=== PATIENT | male | born 1970 | race Caucasian/White ===

== ENCOUNTER 2018-02-07 08:19 | Day surgery (SDC) | payer OTHER ==
[~2018-02-07] VITALS: Ht 170.2 cm; Wt 81.7 kg
[~2018-02-07 08:19] MED LIST: ASCORBIC ACID500 M3 PO; ATENOLOL50 MG PO; BETHANECHOL CHL25 MG PO; COLACE100 MG PO; DOK PLUS TABLE1 EACH PO; DULCOLAX10 MG PR; DURAGESIC25 MCG TD; ELAVIL150 MG PO; FLEXERIL5 MG PO; FLOMAX0.4 MG PO; FOLIC ACID1 MG PO; LOPRESSOR50 MG PO; MELATIN3 MG PO; NEURONTIN300 MG PO; NICODERM CQ1 EAC1 TD; OXYCODONE HCL10 MG PO; OXYCODONE HCL20 M1 PO; OXYMORPHONE HCL10 M1 PO; TAMSULOSIN HCL0.4 MG PO; THERAGRAN1 TABLET PO; TRAMADOL HCL50 MG PO; TYLENOL REGULA325 MG PO; [UNRECOGNIZED DRUG - REMARK] PO
[2018-02-07 09:10] LABS: BASOPHIL (%) 0.7 % (0-1); BASOPHIL COUNT 0.1 K/uL (0-0.1); EOSINOPHIL (%) 3.9 % (0-5); EOSINOPHIL COUNT 0.4 K/uL (0-0.3); HEMATOCRIT 45.6 % (38.0-50.0); HEMOGLOBIN 14.9 G/DL (12.5-16.6); IMMATURE GRANULOCYTE (%) 0.3 % (0.0-0.7); LYMPHOCYTE COUNT 2.6 K/uL (1.0-2.8); MCH 29.5 PG (29.0-34.0); MCHC 32.7 G/DL (30.0-36.0); MCV 90.3 FL (86-99); MONOCYTE (%) 6.4 % (3-12); MONOCYTE COUNT 0.6 K/uL (0-0.8); NEUTROPHIL (%) 62.7 % (45-76); NEUTROPHIL COUNT 6.2 K/uL (1.8-6.4); PLATELET COUNT 209 K/uL (156-360); RBC DIS.WIDTH-CV 14.2 % (11.8-14.6); RBC DIS.WIDTH-SD 47.3 % (39-53); RED BLOOD COUNT 5.05 M/uL (4.00-5.50); WHITE BLOOD COUNT 9.9 K/uL (4.1-10.2)
[2018-02-07 09:29] LABS: ALBUMIN 4.1 G/DL (3.2-4.8); CHLORIDE 104 MEQ/L (99-109); DIRECT BILIRUBIN 0.1 mg/dL (0.0-0.3); POTASSIUM 4.7 MEQ/L (3.7-5.4); SODIUM 138 MEQ/L (136-147); TOTAL BILIRUBIN 0.5 MG/DL (0.0-1.0)
[2018-02-07 09:35] LABS: ALKALINE PHOSPHATASE 89 IU/L (3-129); ALT (GPT) 21 IU/L (3-49); AST (GOT) 28 IU/L (2-34); CREATININE 1.4 MG/DL (0.6-1.3); GFR ESTIMATE (CALCULATED) 58 mL/min/ (58.99-99999); GLUCOSE 89 mg/dL (70-99); UREA NITROGEN (BUN) 21 mg/dL (9-23)
[2018-02-07 09:41] VITALS: BP 106/73
[2018-02-07 14:15] VITALS: BP 151/95
[2018-02-07 14:55] VITALS: BP 144/81
== END 2018-02-07 15:16 | disposition home or self-care (01) ==
LOC: SDC 08:19
PROVIDERS: Ophthalmology
DX: H33.8 Other retinal detachments (principal); B18.1 Chronic viral hepatitis B without delta-agent; G89.29 Other chronic pain; Z79.891 Long term (current) use of opiate analgesic; Z86.79 Personal history of other diseases of the circulatory system; F17.200 Nicotine dependence, unspecified, uncomplicated; Z88.6 Allergy status to analgesic agent
CPT/HCPCS: 80053; 82248; 85025; J0330; J0690; J0713; J1170; J2250; J2405; J3010; J3300